=== PATIENT | female | born 1945 | race Caucasian/White ===

== ENCOUNTER → 2017-11-26 | Outpatient (CLI) | payer MEDICARE | END | disposition home or self-care (01) | LOC: RAD 09:56 | DX: R06.02 Shortness of breath (principal) | CPT/HCPCS: 71046 ==

== ENCOUNTER → 2018-07-08 | Outpatient (CLI) | payer MEDICARE ==
--- NOTE | 2018-07-08 15:54 | RAD ---
Examination: CT chest without contrast HISTORY: History of shortness of breath, cough COMPARISON: None available TECHNIQUE: Axial CT images of the chest were performed without contrast. Coronal and sagittal reformats are performed. Exposure: One or more of the following individualized dose reduction techniques were utilized for this examination: 1. Automated exposure control 2. Adjustment of the mA and/or kV according to patient size 3. Use of iterative reconstruction technique FINDINGS: Central airways are patent. Heart size grossly appears unremarkable. Carotid artery calcifications identified. Small mediastinal lymph nodes identified with the largest measuring 1.3 cm in the pretracheal region. Moderate sized groundglass consolidation identified in the right middle lobe of the lung measuring 4.2 x 2.9 cm. Linear atelectasis or scarring in the left lung base. There is a 4 mm nodule identified in the right lower lobe of the lung, best seen on series 2 image 49. No evidence of pleural effusion or pneumothorax. The visualized noncontrasted liver, spleen, adrenals grossly appears unremarkable Moderate degenerative changes thoracic spine. IMPRESSION: 1. 4.2 cm groundglass consolidation identified in the right middle lobe of the lung. Differential includes infiltrate or atelectasis or bronchoalveolar carcinoma. Close interval follow-up examination is recommended. 2. Small mediastinal lymph nodes 3. 4 mm nodule right lower lobe of the lung. Electronically signed by: Ha Rodas MD (07/08/2018 3:50 PM) [place] [id number]
== END | disposition home or self-care (01) ==
LOC: CT 12:28
PROVIDERS: ATTEND Internal Medicine Pulmonary Disease
DX: J44.9 Chronic obstructive pulmonary disease, unspecified (principal); I25.10 Atherosclerotic heart disease of native coronary artery without angina pectoris; M47.814 Spondylosis without myelopathy or radiculopathy, thoracic region; R59.0 Localized enlarged lymph nodes; R91.1 Solitary pulmonary nodule
CPT/HCPCS: 71250

== ENCOUNTER → 2018-09-30 | Outpatient (CLI) | payer MEDICARE ==
--- NOTE | 2018-09-30 15:21 | RAD ---
EXAM: CT Chest without IV contrast CLINICAL HISTORY: PULMONARY INFILTRATES COMPARISON: CT chest 07/08/2018 TECHNIQUE: CT of the chest without intravenous contrast. Axial, coronal and sagittal reformatted images were generated. ---PQRS compliance statement - One or more of the following individualized dose reduction techniques were utilized for this study: 1. Automated exposure control 2. Adjustment of the mA and/or kV according to patient size 3. Use of iterative reconstruction technique--- FINDINGS: Lack of intravenous contrast limits evaluation of solid organs, vasculature, and lymph nodes. Chest: Heart is not enlarged. Changes of CABG are seen. No pericardial effusion. Prominent to borderline enlarged mediastinal lymph nodes are seen, for example in AP window lymph node measures 1.5 x 1 cm. No pleural effusion or pneumothorax. The previously seen middle lobe groundglass infiltrate is essentially stable on today's examination. Accurate measurement is precluded by scan plane but measures approximately 3.6 x 5.4 x 1.9 cm (AP by transverse by craniocaudal). Visualized Upper abdomen: Visualized upper abdomen is unremarkable. Bones: No definite aggressive osseous lesion is identified. IMPRESSION: 1. Middle lobe groundglass infiltrate is stable to 07/08/2018. Given the lack of interval change or decrease in size, this is suspicious for bronchoalveolar carcinoma and therefore biopsy should be performed. 2. Borderline enlarged mediastinal/AP window lymph node seen. Electronically signed by: Eddie Brady MD (09/30/2018 3:18 PM) [facility]
== END | disposition home or self-care (01) ==
LOC: CT 09:48
PROVIDERS: ATTEND Internal Medicine Pulmonary Disease
DX: R91.8 Other nonspecific abnormal finding of lung field (principal)
CPT/HCPCS: 71250

== ENCOUNTER 2018-11-09 07:02 | Outpatient (CLI) | payer MEDICARE ==
[~2018-11-09] VITALS: Ht 165.1 cm; Wt 68.0 kg
[2018-11-09] VITALS (12 sets, daily range): BP systolic 94–130; BP diastolic 51–67
[2018-11-09] MEDS ORDERED: SIMV40TA PO (07:34)
[2018-11-09 07:36] LABS: BASO # 0.1 x10^3/uL (0.0-0.2); BASO % 1 % (0-3); EOS # 0.4 x10^3/uL (0.0-0.7); EOS % 6 % (0-3); LYMPH # 2.3 x10^3/uL (1.0-4.8); LYMPH % 39 % (24-48); MEAN CORPUSCULAR HEMOGLOBIN 29 pg (25-35); MEAN CORPUSCULAR HGB CONC 33 g/dL (31-37); MEAN CORPUSCULAR VOLUME 88 fL (79-100); MONO # 0.5 x10^3/uL (0.0-1.1); MONO % 8 % (0-9); NEUT # 2.7 x10^3uL (1.8-7.7); NEUT % 46 % (31-73); PLATELET COUNT 234 x10^3/uL (140-400); RED BLOOD COUNT 4.87 x10^6/uL (3.50-5.40); RED CELL DISTRIBUTION WIDTH 13.8 % (11.5-14.5)
[2018-11-09] MEDS ORDERED: LEVO100T PO (07:36)
[2018-11-09] MEDS ORDERED: ASPI-630 PO (07:36)
[2018-11-09] MEDS ORDERED: RAMI2.5C2 PO (07:36)
[2018-11-09 07:46] LABS: CALCIUM 8.9 mg/dL (8.5-10.1); GFR 54.7; POTASSIUM 3.9 mmol/L (3.5-5.1)
[2018-11-09 07:51] LABS: PROTHROMBIN TIME PATIENT 12.4 SEC (11.7-14.0)
[2018-11-09 07:52] LABS: ALBUMIN 3.9 g/dL (3.4-5.0); TOTAL BILIRUBIN 0.4 mg/dL (0.2-1.0); TOTAL PROTEIN 7.8 g/dL (6.4-8.2)
[2018-11-09] MEDS ORDERED: LIDOCAINE WITH 8.4% SOD BICARB 3 ML DISP.SYRIN. ONE ×2 (08:18→08:58)
[2018-11-09] MEDS ORDERED: fentaNYL PF VIAL 100 MCG/2 ML VIAL ONE (08:36)
[2018-11-09] MEDS ORDERED: MIDAZOLAM HCL/PF 2 MG/2 ML VIAL. ONE (08:36)
[2018-11-09] MEDS ORDERED: fentaNYL PF VIAL 100 MCG/2 ML VIAL IV ONE (08:45)
[2018-11-09] MEDS ORDERED: MIDAZOLAM HCL/PF 2 MG/2 ML VIAL. IV ONE (08:45)
[2018-11-09] MEDS ORDERED: LIDOCAINE WITH 8.4% SOD BICARB 3 ML DISP.SYRIN. IJ ONE (08:45)
--- NOTE | 2018-11-09 11:25 | NUR ---
Discharge Pt alert and oriented x 3, gcs 15, no c/o pain at this time, able to tolerate PO, ambulatory with steady gait. CXR reviewed by Dr Wray and pt cleared for DC. DC instructions provided and reviewed, questions answered. Dressing site remains clean and dry. Escorted out per wheelchair, family to drive. PEPITO DALY Addendum: 11/09/18 at 1219 by AVA PENG RN Amended: Links added.
--- NOTE | 2018-11-09 12:35 | RAD ---
CT-guided biopsy, right middle lobe groundglass opacity 11/09/2018 Discussion: Patient is 73-year-old female with a approximately 4.5 cm groundglass opacification in the right middle lobe. Possible areas of slightly more dense consolidation within the superior seen. This is stable since July 16, 2018. Lesion persistence and morphology raises concern for adenocarcinoma in situ. The risks and benefits of biopsy were discussed the patient. Informed consent was obtained. The patient was brought to the CT scanner and placed in the left lateral decubitus position. A timeout procedure was performed. The overlying skin was prepped and draped using sterile barrier technique. CT imaging redemonstrates the lesion, unchanged in morphology from prior studies.. 1% lidocaine was administered for local anesthesia. Under intermittent CT guidance 17-gauge needle was advanced into the area of concern. Core biopsy samples were obtained and placed in formalin. The guiding needle was removed. Manual pressure was held. Repeat CT imaging demonstrates trace pneumothorax. The patient was left on the table for approximately 5 to [address] imaging was repeated demonstrating stable trace pneumothorax. Patient was transferred to the recovery area in stable condition. Follow-up chest radiograph 2 hours later demonstrates no increased pneumothorax. The patient remained hemodynamically stable. The procedure was performed under conscious sedation including continuous cardiopulmonary monitoring via a dedicated sedation nurse. [id number] sedation time: 40 minutes Impression: CT-guided biopsy, right middle lobe groundglass consolidation as described. PQRS Compliance Statement: One or more of the following individualized dose reduction techniques were utilized for this examination: 1. Automated exposure control 2. Adjustment of the mA and/or kV according to patient size 3. Use of iterative reconstruction technique
--- NOTE | 2018-11-09 14:11 | RAD ---
Portable chest, 11/09/2018: HISTORY: Post lung biopsy Comparison is made to a study from 11/26/2017. There has been a previous median sternotomy. The heart size and pulmonary vascularity are normal. The patient's known right middle lobe groundglass opacity is not well defined radiographically. No definite pulmonary consolidation is seen. There is no evidence of pneumothorax or hemothorax status post right lung biopsy. IMPRESSION: No radiographic evidence of complication status post right lung biopsy. Electronically signed by: Hao Calhoun MD (11/09/2018 2:08 PM) [facility]
--- NOTE | 2018-11-10 16:07 | PATHOLOGY ---
[facility] Accession Number: [id number] . 01 Material submitted: . RIGHT LUNG MASS BIOPSY . 01 Clinical history: . Right lung mass . 02 Diagnosis: Lung tissue, right lung mass CT-guided needle biopsy: - ADENOCARCINOMA IN SITU, NON-MUCINOUS. SEE COMMENT. (JPM:suzy; 11/10/2018) QMS/11/10/2018 . 02 Comment: Sections of the right lung mass CT-guided needle biopsy reveal lung tissue. Air spaces throughout the biopsy are lined by atypical cuboidal cells which have eosinophilic cytoplasm and possess enlarged, rounded to ovoid nuclei containing focally prominent nucleoli. The interstitium shows focal chronic inflammation. There is no definitive evidence of invasive acinar adenocarcinoma. 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 Will need to correlate with CT findings. I cannot rule out the possibility of invasive pulmonary acinar adenocarcinoma if the mass has a solid component. The case is also examined by Dr. Hawkins, who concurs with the diagnosis. The results are discussed with Dr. Wray on 11/10/18. (JPM:suzy; 11/10/2018) . 02 Electronically signed: . Mateo Mckeon MD, Pathologist NPI- [id number] . 01 Gross description: . Received in formalin labeled "Estee Henning, right lung BX," are 2 distinct needle cores of fontana soft tissue measuring 1.0 and 1.2 cm in length and 0.1 cm each in diameter. The specimen is submitted entirely in cassette A1 and A2. (TSD; 11/09/2018) TOB/TOB . 02 Pathologist provided ICD-10: D02.21 . 02 CPT . 892135 Specimen Comment: A courtesy copy of this report has been sent to Specimen Comment: [phone], , . Specimen Comment: Report sent to ,DR DUMONT / DR KIM Performed at: 01 [facility] [address], [place] [id number] MD Horacio Schaeffer MD Phone: [phone] Performed at: 02 [facility] [address] [place], [place] [id number] MD Mateo Mckeon MD Phone: [phone]
== END 2018-11-09 11:25 | disposition home or self-care (01) ==
LOC: INTRAD 07:02
PROVIDERS: ATTEND Internal Medicine Pulmonary Disease
DX: D02.21 Carcinoma in situ of right bronchus and lung (principal); Z79.01 Long term (current) use of anticoagulants
CPT/HCPCS: 32405; 36415; 71045; 77012; 80053; 85025; 85610; 99152; 99153; J2250; J3010

== ENCOUNTER → 2019-01-31 | Outpatient (CLI) | payer MEDICARE ==
[2018-11-09 11:05] VITALS: BP 111/61
[~2019-01-31] MED LIST: ASPI-630 PO; LEVO100T PO; RAMI2.5C2 PO; SIMV40TA PO
--- NOTE | 2019-01-31 08:31 | RAD ---
Chest radiograph 01/31/2019 12:00 AM INDICATION: Lung nodule in the right side COMPARISON: November 09, 2018, CT chest 07/20/2019 and July 08, 2018 TECHNIQUE: Frontal and lateral views of the chest are provided. FINDINGS: The cardiomediastinal silhouette is within normal limits. Median sternotomy changes are present. There are no pleural effusions. There is no pulmonary vascular congestion. There is no pneumothorax. Stable groundglass nodular opacity in the right middle lobe measuring approximately 4.3 cm. Mild interstitial changes appears similar. No significant osseous abnormality is identified. IMPRESSION: Stable groundglass nodular opacity in right middle lobe measuring approximately 4.3 cm. Findings have not significantly changed dating back to July 08, 2018 CT chest. Given stability, findings may represent low-grade neoplasm or infectious/inflammatory etiology. Further evaluation with PET/CT, tissue sampling or 3 month follow-up chest CT may be of benefit. Electronically signed by: Carmella Plata MD (01/31/2019 8:28 AM) [id number]
--- NOTE | 2019-01-31 09:06 | RAD ---
Ventilation/perfusion lung scan, 01/31/2019: HISTORY: Chronic shortness of breath, lung nodule The ventilation study was performed utilizing 8.8 mCi of xenon 133. Activity in the lungs is mildly heterogeneous. There is patchy retention of activity in both lungs on the washout phase compatible with a history of COPD. Perfusion imaging was performed utilizing 6 mCi of technetium 99m MAA. There is heterogeneous activity in both lungs similar to that seen on the ventilation study. No segmental or definite unmatched perfusion defects are seen in the anterior and posterior projections. IMPRESSION: Bilateral ventilation and perfusion abnormalities compatible with COPD. While there is no V/Q evidence of large pulmonary emboli, small emboli cannot be excluded in the presence of these perfusion abnormalities. Electronically signed by: Hao Calhoun MD (01/31/2019 9:03 AM) [facility]
== END | disposition home or self-care (01) ==
LOC: NM 08:09
PROVIDERS: ATTEND Internal Medicine Pulmonary Disease
DX: J44.9 Chronic obstructive pulmonary disease, unspecified (principal); R91.1 Solitary pulmonary nodule
CPT/HCPCS: 71046; 78582; 96374; A9540; A9558

== ENCOUNTER → 2019-02-02 | Outpatient (CLI) | payer MEDICARE ==
[2018-11-09 11:05] VITALS: BP 111/61
--- NOTE | 2019-02-02 14:20 | RAD ---
FDG tumor localization scan, PET/CT, 02/02/2019: History: Lung cancer Following IV injection of 13 mCi of 18 F-FDG, imaging was performed from the skull base to the proximal thighs. The noncontrast CT component was performed for attenuation correction and anatomic localization purposes rather than for primary diagnosis. The patient's blood glucose level at the time of injection was 113 M.D./DL. There is a 4.7 cm groundglass opacity in the right middle lobe.. It demonstrates FDG uptake slightly greater than the background activity with a maximum SUV of 2.9. No other hypermetabolic pulmonary process is seen. No hypermetabolic mediastinal or hilar adenopathy is evident. There is abundant muscular activity in this patient which is presumably physiologic. This includes the paraspinous muscles in the lower neck, the right periscapular musculature, the gluteal musculature bilaterally as well as intercostal muscles. Physiologic activity is present in the neck. No hypermetabolic neck lesion is seen. Normal GI tract and urinary tract activity is present in the abdomen and pelvis. There is increased activity involving the diaphragmatic crura bilaterally. No retrocrural, abdominal or pelvic adenopathy is seen. Incidental CT findings include evidence of previous coronary artery bypass surgery. IMPRESSION: 1. Mild FDG uptake in the patient's right middle lobe groundglass opacity compatible with the given history of low-grade adenocarcinoma. 2. No FDG PET evidence of metastatic disease.
== END | disposition home or self-care (01) ==
LOC: PETSC 11:37
PROVIDERS: ATTEND Internal Medicine Pulmonary Disease
DX: R91.8 Other nonspecific abnormal finding of lung field (principal); Z95.1 Presence of aortocoronary bypass graft
CPT/HCPCS: 78815; A9552

== ENCOUNTER → 2019-10-23 | Outpatient (CLI) | payer MEDICARE ==
[2018-11-09 11:05] VITALS: BP 111/61
--- NOTE | 2019-10-23 16:30 | RAD ---
CT of the chest without contrast 10/23/2019 INDICATION: Lung nodule. Prior biopsy of right middle lobe consolidation demonstrates adenocarcinoma in situ. COMPARISON STUDY: PET/CT February 02, [address] October 04, 2018. TECHNIQUE: Multidetector CT imaging of the chest was performed without IV contrast FINDINGS: Heart size is normal. No pericardial effusion is seen. Prior median sternotomy performed bypass surgery noted. No pathologically enlarged mediastinal adenopathy is seen on limited noncontrast evaluation the mediastinum. Scattered small mediastinal lymph nodes prevascular and space and aortopulmonary window noted. No pneumothorax, or pleural effusion is seen. Mild bilateral apical pleural scarring is seen. Minimal opacity in the posterior left upper lobe is similar. Heterogenous focus of predominantly groundglass opacity, with slightly more dense areas, in the right middle lobe has mildly increased in size in the interim since CT from October 04, 2018. Lesion has increased by an estimated 5-10% in size in the interim. No new nodules or masses are identified. Limited visualization of the upper abdomen demonstrates no acute changes. No acute osseous changes are identified. IMPRESSION: Over the last approximately 1 year there has been mild increase in size in the right middle lobe, probably groundglass opacity in the interim. CT DOSING PQRS STATEMENT: One or more of the following individualized dose reduction techniques were utilized for this examination: 1. Automated exposure control 2. Adjustment of the mA and/or kV according to patient size 3. Use of iterative reconstruction technique Electronically signed by: Alessandro Wray MD (10/23/2019 4:27 PM) [id number]
== END | disposition home or self-care (01) ==
LOC: CT 10:55
PROVIDERS: ATTEND Internal Medicine Pulmonary Disease
DX: J98.4 Other disorders of lung (principal); R91.1 Solitary pulmonary nodule
CPT/HCPCS: 71250